=== PATIENT | female | born 1960 | race African-American/Black ===

== ENCOUNTER 2022-02-06 19:32 | Emergency (ER) | payer OTHER ==
[~2022-02-06] VITALS: Ht 162.6 cm; Wt 98.0 kg
[2022-02-07 00:29] LABS: BASOPHILS % 0.7 % (0.0-2.0); HEMATOCRIT. 44.2 % (36.0-48.0); HEMOGLOBIN. 14.7 g/dL (12.0-16.0); LYMPHOCYTES % 36.8 % (20.0-50.0); MEAN CORPUSCULAR HEMOGLOBIN 27.5 pg (28.0-32.0); MEAN CORPUSCULAR VOLUME 82.8 fL (81.0-99.0); MEAN PLATELET VOLUME 6.9 fl (7.4-10.4); MONOCYTES % 9.3 % (2.0-8.0); NEUTROPHILS % 53.2 % (40.0-76.0); PLATELET 356 x1000/uL (130-400); RED BLOOD CELL COUNT 5.34 mill/uL (4.2-5.4); RED CELL DISTRIBUTION WIDTH 15.5 % (11.6-14.6)
[2022-02-07 00:34] LABS: CHLORIDE 101 mEq/L (98-107)
[2022-02-07] MEDS ORDERED: POTASSIUM CHLORIDE 20MEQ TABLET SR PO NR (01:00)
[2022-02-07 02:57] VITALS: BP 112/65
== END 2022-02-07 02:58 | disposition home or self-care (01) ==
LOC: ER 19:32
DX: I10 Essential (primary) hypertension (principal); E87.6 Hypokalemia; E03.9 Hypothyroidism, unspecified; Z98.890 Other specified postprocedural states; Z90.710 Acquired absence of both cervix and uterus
CPT/HCPCS: 36415; 80053; 84484; 85025; 93005; 99285